=== PATIENT | female | born 1970 | race Caucasian/White ===

== ENCOUNTER 2019-11-16 09:44 | Outpatient (CLI) | payer BC, SELFPAY ==
[2019-11-16 10:29] LABS: Add Urine Microscopic? NO; Appearance Urine Clear (Clear); Bilirubin Urine Negative (Negative); Blood Urine Negative (Negative); Color Urine Yellow (Yellow); Glucose Urine UA Negative (Negative); Ketones Urine Negative (Negative); Leukocyte Esterase Ur Negative LEU/UL (NEGATIVE); Nitrate Urine Negative (Negative); Protein Urine Negative (Negative); Specific Grav Ur 1.028 (1.001-1.035); Urobilinogen Urine Negative mg/dL (<2.0)
[2019-11-16 10:31] LABS: Alanine Aminotransferase 19 U/L (4-35); Albumin Level 4.6 g/dL (3.5-5.1); Alkaline Phosphatase 74 U/L (38-126); Aspartate Amino Transferase 27 U/L (14-36); Bilirubin,Total 0.6 mg/dL (0.2-1.3); Blood Urea Nitrogen 15 mg/dL (7-17); Calcium 10.2 mg/dL (8.4-10.2); Carbon Dioxide 33 mmol/L (22-30); Chloride 99 mmol/L (98-107); Estimated Glomerular Filt Rate > 60; Glucose 105 mg/dL (65-105); Potassium 3.8 mmol/L (3.4-5.0); Sodium 137 mmol/L (137-145)
[2019-11-16 10:58] LABS: Free T4 Free Thyroxine 0.76 ng/mL (0.78-2.19)
[2019-11-16 12:11] LABS: Total Triiodothyronine (T3) 1.25 NG/ML (0.97-1.69)
[2019-11-22 16:46] LABS: Estrogen 354.7 pg/mL
== END 2019-11-16 09:45 | disposition home or self-care (01) ==
PROVIDERS: PCP Emergency Medicine; Visit Provider Obstetrics & Gynecology
DX: L65.9 Nonscarring hair loss, unspecified (principal)
CPT/HCPCS: 36415; 80053; 81003; 82607; 82672; 84439; 84443; 84480; 87086; 87088

== ENCOUNTER 2020-07-11 10:17 | Outpatient (CLI) | payer BC, SELFPAY ==
[2020-07-11 10:43] LABS: Alanine Aminotransferase 15 U/L (4-35); Albumin Level 4.3 g/dL (3.5-5.1); Alkaline Phosphatase 76 U/L (38-126); Anion Gap 5 mmol/L (8-16); Aspartate Amino Transferase 24 U/L (14-36); Bilirubin,Total 0.4 mg/dL (0.2-1.3); Blood Urea Nitrogen 15 mg/dL (7-17); Calcium 9.4 mg/dL (8.4-10.2); Carbon Dioxide 30 mmol/L (22-30); Chloride 105 mmol/L (98-107); Estimated Glomerular Filt Rate > 60; Glucose 96 mg/dL (65-105); Potassium 3.8 mmol/L (3.4-5.0); Sodium 140 mmol/L (137-145)
[2020-07-11 10:59] LABS: T4 Thyroxine 8.72 ug/dL (5.53-11.0)
[2020-07-11 11:28] LABS: Vitamin D 25 Hydroxy 47.1 ng/mL
[2020-07-16 11:31] LABS: Estrogen 259.2 pg/mL
== END 2020-07-11 10:18 | disposition home or self-care (01) ==
PROVIDERS: PCP Nurse Practitioner Family; Visit Provider Obstetrics & Gynecology
DX: N95.1 Menopausal and female climacteric states (principal)
CPT/HCPCS: 36415; 80053; 82306; 82672; 84436; 84443

== ENCOUNTER 2021-01-11 15:32 | Outpatient (CLI) | payer BC, SELFPAY ==
--- NOTE | ~2021-01-11 | MM_ITS ---
EXAMINATION: MM screening amy BI w tanner HISTORY: Screening mammogram TECHNIQUE: Craniocaudal and mediolateral oblique 3-D tomosynthesis images were obtained and synthetic 2-D images were generated. Bilateral rotated lateral CC views. CAD analysis was submitted and interp reted. COMPARISON: 11/02/2018 bilateral diagnostic digital mammogram and Limited bilateral breast ultrasound 10/26/2017, 10/16/2016, 10/15/2015 bilateral digital screening mammogram examinations BREAST PARENCHYMAL COMPOSITION: The breasts are heterogeneously dense, which may obscure small masses . FINDINGS: Bilateral breast biopsy markers are noted. History of bilateral multiple benign breast biop sies. Suggestion of a new 9 mm circumscribed mass outer mid left breast. Diagnostic left mammogram and left breast ultrasound examination are recommended. Otherwise there is no evidence of suspicious mass, calcification, or architectural distortion to sugg est malignancy in either breast. There has been no other suspicious interval change. IMPRESSION: 1. Possible new 9 mm circumscribed mass in the outer mid left breast 2. Diagnostic left mammogram and left breast ultrasound examination are recommended BI-RADS Category 0: Incomplete: Needs additional imaging evaluation. Reviewed, dictated and finalized at location A. IMPRESSION: 1. Possible new 9 mm circumscribed mass in the outer mid left breast 2. Diagnostic left mammogram and left breast ultrasound examination are recomme nded BI-RADS Category 0: Incomplete: Needs additional imaging evaluation.
== END 2021-01-11 15:33 | disposition home or self-care (01) ==
LOC: ANHIMG 15:33
PROVIDERS: PCP Nurse Practitioner Family; Visit Provider Obstetrics & Gynecology
DX: Z12.31 Encounter for screening mammogram for malignant neoplasm of breast (principal); R92.8 Other abnormal and inconclusive findings on diagnostic imaging of breast
CPT/HCPCS: 77063; 77067

== ENCOUNTER 2021-03-27 13:42 | Outpatient (CLI) | payer BC, SELFPAY ==
--- NOTE | ~2021-03-27 | MMUS_ITS ---
CORRECTED REPORT EXAMINATION CORRECTED, CHANGED TO MM diagnostic amy LT w tanner 04/06/2021 sef EXAMINATION: MM diagnostic amy LT w tanner, US breast LT complete HISTORY: Follow-up left breast masses TECHNIQUE: Additional 3-D tomosynthesis images of the left breast were performed and synthetic 2-D images were generated. CAD analysis was submitted and interpreted. High resolution complete left breast ultrasound was performed. COMPARISON: Comparison to multiple prior studies sequentially, with oldest reviewed study dated 05/04/2014. BREAST PARENCHYMAL COMPOSITION: The breasts are heterogenously dense, which may obscure small masses. FINDINGS: MAMMOGRAPHIC FINDINGS: There are multiple masses in the periareolar/subareolar, largest measuring 1 cm. There are no suspicious calcifications. There are surgical changes in the upper outer quadrant of the left breast, consistent with previous benign biopsy. ULTRASOUND: Complete left US of all 4 quadrants of the breasts and retroareolar region was reviewed. At 2:00, 1 cm from the nipple there is a 5 mm cyst. At 3:00, 2 cm from the nipple there is a 1.3 cm cyst. At 4:00, 4 cm from the nipple there is a 7 mm cyst. At 9:00, 2 cm from the nipple, there is a small cluster of microcysts measuring 4 mm. No suspicious masses to suggest malignancy. IMPRESSION: 1. Multiple benign cysts are identified by ultrasound corresponding to the masses scattered throughout the left breast on mammography. No evidence for malignancy in the left breast. 2. Routine yearly screening mammogram and regular clinical breast examination are recommended. BI-RADS Category 2: Benign finding(s). Reviewed, dictated and finalized at location A. MTDD IMPRESSION: 1. Multiple benign cysts are identified by ultrasound corresponding to the mass es scattered throughout the left breast on mammography. No evidence for maligna ncy in the left breast. 2. Routine yearly screening mammogram and regular clinical breast examination a re recommended. BI-RADS Category 2: Benign finding(s).
== END 2021-03-27 13:43 | disposition home or self-care (01) ==
LOC: ANHIMG 13:43
PROVIDERS: PCP Nurse Practitioner Family; Visit Provider Obstetrics & Gynecology
DX: R92.8 Other abnormal and inconclusive findings on diagnostic imaging of breast (principal)
CPT/HCPCS: 76641; 77061; 77065; G0279

== ENCOUNTER 2022-04-28 07:41 | Outpatient (CLI) | payer BC, SELFPAY ==
--- NOTE | ~2022-04-28 | MM_ITS ---
EXAMINATION: MM screening amy BI w tanner HISTORY: Screening TECHNIQUE: Craniocaudal and mediolateral oblique 3-D tomosynthesis images were obtained and synthetic 2-D images were generated. CAD analysis was submitted and interpreted. COMPARISON: Comparison to multiple prior studies sequentially, with oldest reviewed study dated 07/2016. BREAST PARENCHYMAL COMPOSITION: The breasts are extremely dense, which lowers the sensitivity of mamm ography FINDINGS: There are new masses throughout the right breast which are obscured by dense fibroglandular tissue. There are new masses also in the posterior aspect of the left breast. There are stable lisa s anteriorly in the left breast which were previously characterized as cysts. IMPRESSION: 1. Multiple new masses in both breasts which are obscured by fibroglandular tissue. 2. Additional mammographic views and possible breast ultrasound are recommended. BI-RADS Category 0: Incomplete: Needs additional imaging evaluation. Reviewed, dictated and finalized at location A. CONTROL SPECIALIST IMPRESSION: 1. Multiple new masses in both breasts which are obscured by fibroglandular tis adela. 2. Additional mammographic views and possible breast ultrasound are recommended . BI-RADS Category 0: Incomplete: Needs additional imaging evaluation.
== END 2022-04-28 07:42 | disposition home or self-care (01) ==
PROVIDERS: PCP Nurse Practitioner Family; Visit Provider Obstetrics & Gynecology
DX: Z12.31 Encounter for screening mammogram for malignant neoplasm of breast (principal); R92.8 Other abnormal and inconclusive findings on diagnostic imaging of breast
CPT/HCPCS: 77063; 77067

== ENCOUNTER 2022-05-16 13:36 | Outpatient (CLI) | payer BC, SELFPAY ==
--- NOTE | ~2022-05-16 | MMUS_ITS ---
EXAMINATION: MM diagnostic amy BI w tanner, US breast BI limited HISTORY: Possible bilateral breast masses on screening mammogram TECHNIQUE: Additional 3-D tomosynthesis images of the breasts were performed and synthetic 2-D images were generated. CAD analysis was submitted and interpreted. High resolution limited bilateral breast ultrasound was performed. COMPARISON: 04/28/2022, 03/27/2021, 01/11/2021 , 10/23/2018 FINDINGS: MAMMOGRAPHIC FINDINGS: There are multiple obscured, waxing and waning bilateral equal and low-density breast masses. None de monstrate suspicious interval change. No suspicious calcification or architectural distortion. ULTRASOUND: There are multiple bilateral breast cysts. A chronic cluster of microcysts is seen at the 10:00 locat ion 7 cm from the nipple in the right breast. IMPRESSION: 1. No mammographic or sonographic evidence of malignancy. 2. Recommend routine screening mammography in one year. BI-RADS Category 2: Benign finding(s). Reviewed, dictated and finalized at location A. OSITION WEATHERBOARD INSTALLER IMPRESSION: 1. No mammographic or sonographic evidence of malignancy. 2. Recommend routine screening mammography in one year. BI-RADS Category 2: Benign finding(s).
== END 2022-05-16 13:37 | disposition home or self-care (01) ==
PROVIDERS: PCP Nurse Practitioner Family; Visit Provider Obstetrics & Gynecology
DX: R92.8 Other abnormal and inconclusive findings on diagnostic imaging of breast (principal)
CPT/HCPCS: 76642; 77062; 77066; G0279

== ENCOUNTER 2023-05-21 14:13 | Outpatient (CLI) | payer BC, SELFPAY ==
--- NOTE | ~2023-05-21 | MM_ITS ---
EXAMINATION: MM screening amy BI w tanner HISTORY: Screening mammogram, family history of breast cancer in her mother. TECHNIQUE: Craniocaudal and mediolateral oblique 3-D tomosynthesis images were obtained and synthetic 2-D images were generated. CAD analysis was submitted and interpreted. COMPARISON: 05/16/2022, 04/28/2022, 03/27/2021, 01/11/2021 BREAST PARENCHYMAL COMPOSITION: There are scattered areas of fibroglandular density. FINDINGS: Again seen are multiple obscured, waxing and waning bilateral equal and low-density breast masses, consistent with benign findings. No suspicious mass, calcification, or architectural distorti on are identified in either breast to suggest malignancy. There has been no suspicious interval esquivel e. IMPRESSION: 1. No mammographic evidence of malignancy. 2. Recommend routine screening mammography in one year. BI-RADS Category 2: Benign finding(s). Reviewed, dictated and finalized at location A. L AND PATTERN SUPERVISOR
== END 2023-05-21 14:14 | disposition home or self-care (01) ==
PROVIDERS: PCP Nurse Practitioner Family; Visit Provider Obstetrics & Gynecology
DX: Z12.31 Encounter for screening mammogram for malignant neoplasm of breast (principal)
CPT/HCPCS: 77063; 77067

== ENCOUNTER 2024-06-13 07:27 | Outpatient (CLI) | payer BC, SELFPAY ==
--- NOTE | ~2024-06-13 | MM_ITS ---
EXAMINATION: MM screening amy BI w tanner HISTORY: Screening TECHNIQUE: Craniocaudal and mediolateral oblique 3-D tomosynthesis images were obtained and synthetic 2-D images were generated. CAD analysis was submitted and interpreted. COMPARISON: 05/21/2023 and dating back to 10/26/2017 BREAST PARENCHYMAL COMPOSITION: The breasts are heterogeneously dense, which may obscure small masses . FINDINGS: Multiple microclips within the bilateral breast tissue, consistent with patient's history. Stable parenchymal pattern without suspicious microcalcifications, architectural distortion, discrete masses or significant asymmetry. IMPRESSION: 1. No mammographic evidence of malignancy. 2. Recommend routine screening mammography in one year. BI-RADS Category 2: Benign finding(s). Reviewed, dictated and finalized at location A. RMATION AND REFERRAL DIRECTOR
== END 2024-06-13 07:28 | disposition home or self-care (01) ==
PROVIDERS: PCP Nurse Practitioner Family; Visit Provider Obstetrics & Gynecology
DX: Z12.31 Encounter for screening mammogram for malignant neoplasm of breast (principal)
CPT/HCPCS: 77063; 77067

== ENCOUNTER 2024-12-17 08:38 | Outpatient (CLI) | payer BC, SELFPAY ==
--- NOTE | ~2024-12-17 | MMUS_ITS ---
EXAMINATION: MM diagnostic amy RT w tanner, US breast RT limited HISTORY: Right breast lump TECHNIQUE: 3-D tomosynthesis images of the right breast were performed and synthetic 2-D images were generated. CAD analysis was submitted and interpreted. High resolution limited right breast ultrasoun d was performed. COMPARISON: 06/13/2024, 05/21/2023, 05/16/2022, 04/28/2022 BREAST PARENCHYMAL COMPOSITION:Not Dense. There are scattered areas of fibroglandular density. FINDINGS: MAMMOGRAPHIC FINDINGS: Stable parenchymal appearance of the right breast. No suspicious mass lesion or distortion. Scattered benign calcifications are stable from prior exam. No suspicious microcalcifications. ULTRASOUND: There is a 1.4 x 1.3 x 0.7 cm parallel anechoic simple cyst at the 11:00 position right breast, 10 cm from the nipple. There is an additional 5 mm simple cyst at the 11:00 position right breast, 3 cm fr om the nipple. IMPRESSION: No evidence for malignancy. Simple breast cysts seen in the right breast sonographically, as detaile d above. BI-RADS Category 2: Benign finding(s). Reviewed, dictated and finalized at location M. IMPRESSION: No evidence for malignancy. Simple breast cysts seen in the right breast sonog raphically, as detailed above. BI-RADS Category 2: Benign finding(s).
--- OUTSIDE RECORDS SUMMARY | 2024-12-17 08:43 | XMS_ITS | Clinical Summary ---
Author Organization [facility] Address [address] [place] [address] Phone Care Team Providers Care Ncr Operator Name Role Phone Sebas Leo Primary Care Provider Allergies No known active allergies Medications losartan potassium-hydroc hlorothiazide (HYZAAR) 100-25 MG Tablet Take 1 Tab by mouth daily. 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 Family History Medical History Relation Name Comments Alzheimer's Disease Father Diabetes Maternal Grandmother Hypertension Mother Relation Name Status Comments Father Maternal Grandmother Mother Social History Tobacco Use Types Packs/Day Years Used Date Smoking Tobacco: Never Smokeless Tobacco: Never Tobacco Cessation:Counseling Given: No Alcohol Use Standard Drinks/Week Comments No 0 (1 standard drink = 0.6 oz pur e alcohol) Comments No Sex and Gender Information Value Date Recorded Sex Assigned at Not on file Legal Sex Female 11:50 PM CDT Gender Identity Not on file Sexual Orientation Not on file Last Filed Vital Signs Vital Sign Reading Time Taken Comments Blood Pressure 112/80 05/13/2017 2:54 PM HEAT READER Pulse 79 05/13/2017 2:54 PM HEAT READER Temperature 36.5 C (97.7 F) 05/13/2017 2:54 PM HEAT READER Respiratory Rate 18 05/13/2017 2:54 PM HEAT READER Oxygen Saturation 94% 05/13/2017 2:54 PM HEAT READER Inhaled Oxygen Concentration - - Weight 90.7 kg (200 lb) 05/13/2017 2:54 PM HEAT READER Height 170.2 cm (5' 7) 05/13/2017 2:54 PM HEAT READER Body Mass Index 31.32 05/13/2017 2:54 PM HEAT READER Plan of Treatment Health Maintenance Due Date Last Done Comments Hepatitis C Virus (HCV) Screening 1970 TdaP Immunization 1970 Hepatitis B Immunization (1 of 3 - 19+ 3-dose series) 02/20/1991 Cologuard 02/20/2017 Colonoscopy 02/20/2017 Colorectal Cancer Screening 02/20/2017 Immunochemical Fecal Occult Blood 02/20/2017 Pneumococcal Immunization (5 0+ years) (1 of 1 - PCV) 02/20/2022 Zoster Immunization (1 of 2) 02/20/2022 SARS-COV-2 Immunization (2 - ) 02/16/2024 08/25/2020 Influenza Immunization (Seas on Ended) 2025 Respiratory Syncytial Virus (RSV) Immunization (Adult) (1 - 1-dose 75+ series) 02/20/2047 Human Papillomavirus (HPV) Immunization Aged Out No longer eligible b ased on patient's age to complete this topic Meningococcal Immunization (ACWY) Aged Out No longer eligible based on patient's age to complete this topic Rotavirus Immunization Aged Out No lo nger eligible based on patient's age to complete this topic Insurance MEDICAID [employer] Care Teams Ncr Operator Relationship Specialty Start Date End Date Sebas Leo [address] [place] [address] PCP - General Family Medicine 04/25/17
--- OUTSIDE RECORDS SUMMARY | 2024-12-17 08:43 | XMS_ITS | Encounter Summary ---
Author Organization [facility] Address [address] 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
--- OUTSIDE RECORDS SUMMARY | 2024-12-17 08:43 | XMS_ITS | Clinical Summary ---
Author Organization [facility] Address [address] [place] [address] [place] [address] Care Team Providers Care Conduit Helper Name Role Phone Unavailable Primary Care Provider Unavailabl e Allergies No known active allergies Medications losartan-hydroCH LOROthiazide (HYZAAR) 100-25 mg tablet Take 1 Tablet by mouth. 03/22/2017 Active estradioL (ESTRACE) 1 mg tablet TK 1 T PO D 12/05/2019 Active Active Problems Patient Care Coordination No te Formatting of this note migh t be different from the original. Primary Care: No primary care provider on file. Referring Provider: No referring provider defined for this encounter. Other: Dr. Giselle Chavez MD Problem Noted Date Diagnosed Date Fibrocystic breast changes, bilateral 11/25/2018 Duct ectasia, right 11/25/2018 Sign and symptom in breast 11/18/2018 Bilateral breast lump 11/13/2018 Abnormal ultrasound of breast 11/13/2018 Dense breasts 11/13/2018 Family History Medical History Relation Name Comments Breast Cancer Mother Cancer Mother Relation Name Status Comments Mother Social History Tobacco Use Types Packs/Day Years Used Date Smoking Tobacco: Never Smokeless Tobacco: Never Alcohol Use Standard Drinks/Week Comments Yes 0 (1 standard drink = 0.6 oz pur e alcohol) Comments No Sex and Gender Information Value Date Recorded Sex Assigned at Not on file Legal Sex Female 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 Gender Identity Not on file Sexual Orientation Not on file Last Filed Vital Signs Vital Sign Reading Time Taken Comments Blood Pressure 134/82 01/21/2020 10:17 AM CDT Pulse 70 01/08/2019 9:16 AM CDT Temperature 37.3 C (99.1 F) 01/08/2019 9:16 AM CDT Respiratory Rate - - Oxygen Saturation 96% 01/08/2019 9:16 AM CDT Inhaled Oxygen Concentration - - Weight 93.9 kg (207 lb) 01/21/2020 10:17 AM CDT Height 171.5 cm (5' 7.5) 01/21/2020 10:17 AM CD T Body Mass Index 31.94 01/21/2020 10:17 AM CDT Plan of Treatment Health Maintenance Due Date Last Done Comments HEPATITIS B VACCINES (1 of 3 - 19+ 3-dose series) 02/20/1991 HPV/Cotest (21-29) 02/20/1993 CERVICAL CANCER SCREENING 02/20/2002 HPV/Cotest (30-65) 02/20/2002 PAP SMEAR 02/20/2002 COLORECTAL SCREENING 02/20/2017 Colorectal Cancer Screening 02/20/2017 FIT-DNA Q 3 years 02/20/2017 FIT/FOBT Q 1 year 02/20/2017 Flex Sig/CT Colonography Q 5 years 02/20/2017 BREAST CANCER SCREENING 01/21/2021 01/22/20 20, 10/23/2018, 10/26/2017, Additional history exists ZOSTER VACCINE (1 of 2) 02/20/2022 INFLUENZA VACCINE (#1) 2024 DTAP/TDAP/TD VACCINES (2 - T d or Tdap) 02/18/2029 02/18/2019 Procedures Procedure Name Priority Date/Time Associated Diagnosis Comments MAMMO 3D MARY ANN DIAGNOSTIC BILAT W OR WO CAD Routine 01/22/2020 1:40 PM CDT Bilateral breast lump Abnormal ultrasound of breast Dense breasts Fibrocystic breast changes, bilateral from Last 3 Months or Most Recently Relevant to Health Maintenance Results * MAMMO DIAG BILAT 3D MARY ANN W OR WO CAD (01/22/2020 1:40 PM CDT) Anatomical Region Laterality Modality Breast Bilateral Mammography 01/22/2020 1:40 PM CDT Impressions 01/22/2020 5:38 PM CDT IMPRESSION: 1. No sonographic or mammographic correlate for the patient's palpable concern. Clinical follow-up is recommended. 2. Multiple cysts are identified throughout the breasts including in the left lateral breast at the 3:00 position mid depth consistent with the new mass identified on mammogram. 3. The asymmetry identified in the left craniocaudal view and in the right craniocaudal view centrally at posterior depth did not have a correlate on ultrasound and are favored to represent summation of breast tissue. These asymmetries appears similar to other areas in the breast bilaterally. OVERALL FINAL ASSESSMENT: BI-RADS Category 2: Benign. Annual screening mammography is recommended. Tomosynthesis is recommended. DICTATION LOCATION: [facility] 01/22/2020 5:38 PM CDT EXAMINATION: BILATERAL DIGITAL DIAGNOSTIC MAMMOGRAM INCLUDING CAD AND BILATERAL DIGITAL BREAST TOMOSYNTHESIS; BILATERAL BREAST SONOGRAM LIMITED DATE: 01/22/2020 1:40 PM HISTORY: 49 year-old woman who presents with a palpable abnormality in the left upper and inner breast. The patient is due for her yearly mammogram. COMPARISON: 10/23/2018 10/26/2017 10/16/2016 TECHNIQUE: Full field digital mammographic views of BOTH breasts were performed, including computer aided detection (CAD) and BILATERAL digital breast tomosynthesis (DBT). Directed ultrasound evaluation of BOTH breasts was performed by a trained modeling instructor and Dr. Coello. BREAST PARENCHYMAL COMPOSITION: The breasts are heterogenously dense, which may obscure small masses. MAMMOGRAM FINDINGS: A BB hendricks the area of the patient's palpable concern. No mammographic finding is visualized in the area of palpable concern. Of note this is where the patient reports her physician felt a palpable abnormality. There are multiple benign-appearing masses throughout both breasts. In the left lateral superior breast at mid depth approximately 6 cm from the nipple there is a another new 6 mm circumscribed equal density mass with circumscribed and obscured margins. Ultrasound was performed for further evaluation. In the left central breast at posterior depth there is a new 9 mm asymmetry that is not seen on previous exam. The asymmetry persists on spot images and is possibly visualized on the craniocaudal rolled lateral view posterior to the nipple, however it is unchanged in locations consistent with an inferior location at 6:00. Tomosynthesis also places this asymmetry in the inferior breast. No correlate is identified in the mediolateral or mediolateral oblique view. Ultrasound was completed for further evaluation. In the right central breast at posterior depth there is an asymmetry which may persist on spot images. The asymmetry remains in the same location on the rolled medial craniocaudal view. This is consistent with an inferior location. No correlate is identified on the mediolateral or mediolateral oblique view or the craniocaudal rolled lateral view. Ultrasound is completed for further evaluation. SONOGRAM FINDINGS: Targeted sonogram was performed in the patient's area of palpable concern at 10:00 position 7 cm from the nipple. No ultrasound correlate to the patient's palpable abnormality is visualized. In the left lateral superior breast at mid depth 3:00 position 8 cm from the nipple there is a simple cyst. This correlates with the mass identified on mammogram. Targeted ultrasound is performed of the left breast from 12:00, 2 cm above the nipple down through 6:00 to the inferior of the breast. A small incidental 0.4 cm cyst is identified. No ultrasound correlate is identified for the left central breast asymmetry at posterior depth. Targeted ultrasound was performed of the right breast at the 6:00 position from the nipple to the inferior of the right breast. An incidental simple cyst was identified at the 6:00 position 2 cm from the nipple. There is no correlate for the asymmetry identified on mammography. Procedure Note Amaris Coello MD - 01/22/2020 EXAMINATION: BILATERAL DIGITAL DIAGNOSTIC MAMMOGRAM INCLUDING CAD AND BILATERAL DIGITAL BREAST TOMOSYNTHESIS; BILATERAL BREAST SONOGRAM LIMITED DATE: 01/22/2020 1:40 PM HISTORY: 49 year-old woman who presents with a palpable abnormality in the left upper and inner breast. The patient is due for her yearly mammogram. COMPARISON: 10/23/2018 10/26/2017 10/16/2016 TECHNIQUE: Full field digital mammographic views of BOTH breasts were performed, including computer aided detection (CAD) and BILATERAL digital breast tomosynthesis (DBT). Directed ultrasound evaluation of BOTH breasts was performed by a trained modeling instructor and Dr. Coello. BREAST PARENCHYMAL COMPOSITION: The breasts are heterogenously dense, which may obscure small masses. MAMMOGRAM FINDINGS: A BB hendricks the area of the patient's palpable concern. No mammographic finding is visualized in the area of palpable concern. Of note this is where the patient reports her physician felt a palpable abnormality. There are multiple benign-appearing masses throughout both breasts. In the left lateral superior breast at mid depth approximately 6 cm from the nipple there is a another new 6 mm circumscribed equal density mass with circumscribed and obscured margins. Ultrasound was performed for further evaluation. In the left central breast at posterior depth there is a new 9 mm asymmetry that is not seen on previous exam. The asymmetry persists on spot images and is possibly visualized on the craniocaudal rolled lateral view posterior to the nipple, however it is unchanged in locations consistent with an inferior location at 6:00. Tomosynthesis also places this asymmetry in the inferior breast. No correlate is identified in the mediolateral or mediolateral oblique view. Ultrasound was completed for further evaluation. In the right central breast at posterior depth there is an asymmetry which may persist on spot images. The asymmetry remains in the same location on the rolled medial craniocaudal view. This is consistent with an inferior location. No correlate is identified on the mediolateral or mediolateral oblique view or the craniocaudal rolled lateral view. Ultrasound is completed for further evaluation. SONOGRAM FINDINGS: Targeted sonogram was performed in the patient's area of palpable concern at 10:00 position 7 cm from the nipple. No ultrasound correlate to the patient's palpable abnormality is visualized. In the left lateral superior breast at mid depth 3:00 position 8 cm from the nipple there is a simple cyst. This correlates with the mass identified on mammogram. Targeted ultrasound is performed of the left breast from 12:00, 2 cm above the nipple down through 6:00 to the inferior of the breast. A small incidental 0.4 cm cyst is identified. No ultrasound correlate is identified for the left central breast asymmetry at posterior depth. Targeted ultrasound was performed of the right breast at the 6:00 position from the nipple to the inferior of the right breast. An incidental simple cyst was identified at the 6:00 position 2 cm from the nipple. There is no correlate for the asymmetry identified on mammography. IMPRESSION: 1. No sonographic or mammographic correlate for the patient's palpable concern. Clinical follow-up is recommended. 2. Multiple cysts are identified throughout the breasts including in the left lateral breast at the 3:00 position mid depth consistent with the new mass identified on mammogram. 3. The asymmetry identified in the left craniocaudal view and in the right craniocaudal view centrally at posterior depth did not have a correlate on ultrasound and are favored to represent summation of breast tissue. These asymmetries appears similar to other areas in the breast bilaterally. OVERALL FINAL ASSESSMENT: BI-RADS Category 2: Benign. Annual screening mammography is recommended. Tomosynthesis is recommended. DICTATION LOCATION: [facility] Giselle Chavez MD MAMMO ORDERABLES Final R esult from Last 3 Months or Most Recently Relevant to Health Maintenance Insurance [facility]
== END 2024-12-17 08:39 | disposition home or self-care (01) ==
LOC: CHSIMG 08:39
PROVIDERS: Visit Provider Nurse Practitioner Family
DX: N63.11 Unspecified lump in the right breast, upper outer quadrant (principal); N63.10 Unspecified lump in the right breast, unspecified quadrant
CPT/HCPCS: 76642; 77061; 77065; G0279